=== PATIENT | female | born 1935 | race Caucasian/White ===

== ENCOUNTER 2016-10-17 20:49 | Inpatient (IN) | payer MEDICARE, BC ==
--- NOTE | 2016-10-17 20:55 | ED.PDOC ---
History of Present Illness - General Chief Complaint: General Stated Complaint: low blood pressure Time Seen by Provider: 10/17/16 20:51 Source: RN notes reviewed, Vital Signs reviewed, EMS notes reviewed Exam Limitations: clinical condition - History of Present Illness Initial Comments: Victoria Youssef 81 y/o female brought by ems after they were called up for low blood pressure on the patient.She is being treated with antibiotics for uti showing vancomycin resistant enterococcus.She was admitted for rehab after she had hip surgery left.Patient had been also sleeping a lot.Niece and brother also stated that she had been having diarrhea for 5 days and noted when they visited her had been having occasional visual hallucinations as well as talking about her bad dreams;also she was able to go to rehab last week but starting wednesday she likes to stay in bed mostly and was noted to be gradually getting worse mumbling and with just being touch screams in pain. Timing/Duration: unsure Severity: moderate Improving Factors: nothing Worsening Factors: movement Associated Symptoms: other - none Allergies/Adverse Reactions: Allergies NO KNOWN ALLERGY Allergy (Unverified 05/22/14 04:14) Home Medications: Ambulatory Orders Flagyl 05/22/14 Review of Systems - Review of Systems Hematologic/Lymphatic: States: no symptoms reported Unable to Obtain Due To: clinical condition Past Medical History (General) - Patient Medical History Hx Other PMH: Yes - parkinsons,vascular dementia w/behavioral disturbances, psychosis nos Surgical History: other - left hip - Vaccination History Hx Influenza Vaccination: No Family Medical History - Family History Mother Family History: Unknown Living Status: Physical Exam - Physical Exam General Appearance: Agitated, No apparent distress, Other - somnolent but screams when extremities are touch Ears, Nose, Throat: other - oral mucosa dry multiple tooth decay Neck: non-tender, supple, normal inspection Respiratory: chest non-tender, no respiratory distress, rales - bases Cardiovascular/Chest: normal peripheral pulses, regular rate, rhythm, no JVD, no murmur Peripheral Pulses: radial,right: 2+, radial,left: 2+ Gastrointestinal/Abdominal: normal bowel sounds, soft, no organomegaly, other - feeding tube intact Rectal Exam: normal rectal tone Back Exam: normal inspection Extremity: no pedal edema, other - healed surgical scar left hip Progress - Results/Orders Results/Orders: Vital Signs - 8 hr 10/17/16 10/17/16 10/17/16 20:57 20:58 22:16 Temperature 98.8 F Pulse Rate [ 71 73 right] Respiratory 18 18 18 Rate Blood Pressure 99/48 101/56 [right] O2 Sat by Pulse 98 97 Oximetry 10/17/16 10/18/16 23:20 00:04 Temperature 97.4 F L Pulse Rate [ 73 73 right] Respiratory 18 18 Rate Blood Pressure 101/56 140/52 [right] O2 Sat by Pulse 94 L 94 L Oximetry 10/17/16 22:20 URINE CULTURE W/COLONY COUNT Stat 10/18/16 00:07 Head [CT] Stat Laboratory Results WBC 6.8 K/mm3 (4.8-10.8) 10/17/16 21:20 RBC 3.48 M/mm3 (4.20-5.40) L 10/17/16 21:20 Hgb 10.3 gm/dL (12.0-16.0) L 10/17/16 21:20 Hct 30.5 % (36.0-47.0) L 10/17/16 21:20 MCV 87.7 fl (81.0-99.0) 10/17/16 21:20 MCH 29.5 pg (27.0-31.0) 10/17/16 21:20 MCHC 33.8 g/dL (33.0-37.0) 10/17/16 21:20 RDW 17.2 % (11.5-14.5) H 10/17/16 21:20 Plt Count 242 K/mm3 (130-400) 10/17/16 21:20 MPV 8.1 fl (7.40-10.4) 10/17/16 21:20 Absolute Neuts (auto) 5.00 K/uL (1.8-6.8) 10/17/16 21:20 Absolute Lymphs (auto) 0.90 K/uL (1.0-3.4) L 10/17/16 21:20 Absolute Monos (auto) 0.70 K/uL (0.2-0.8) 10/17/16 21:20 Absolute Eos (auto) 0.20 K/uL (0.0-0.4) 10/17/16 21:20 Absolute Basos (auto) 0.00 K/uL (0.0-0.1) 10/17/16 21:20 Neutrophils % 73.5 % (42.0-78.0) 10/17/16 21:20 Lymphocytes % 13.6 % (20.0-50.0) L 10/17/16 21:20 Monocytes % 10.1 % (2.0-9.0) H 10/17/16 21:20 Eosinophils % 2.4 % (1.0-5.0) 10/17/16 21:20 Basophils % 0.4 % (0.0-2.0) 10/17/16 21:20 Sodium 142 mmol/L (135-145) 10/17/16 21:20 Potassium 3.5 mmol/L (3.6-5.0) L 10/17/16 21:20 Chloride 112 mmol/L (101-111) H 10/17/16 21:20 Carbon Dioxide 24 mmol/L (21-31) 10/17/16 21:20 Anion Gap 9.5 (12-18) L 10/17/16 21:20 BUN 59 mg/dL (7-18) H 10/17/16 21:20 Creatinine 1.11 mg/dL (0.6-1.3) 10/17/16 21:20 BUN/Creatinine Ratio 53.2 (10-20) H 10/17/16 21:20 Random Glucose 121 mg/dL (70-105) H 10/17/16 21:20 Serum Osmolality 300.9 mOsm/L (275-295) H 10/17/16 21:20 Lactic Acid 1.6 mmol/L (0.5-2.2) 10/17/16 21:20 Calcium 8.6 mg/dL (8.4-10.2) 10/17/16 21:20 Total Bilirubin 0.2 mg/dL (0.2-1.0) 10/17/16 21:20 AST 26 IU/L (10-42) 10/17/16 21:20 ALT 27 IU/L (10-60) 10/17/16 21:20 Alkaline Phosphatase 64 IU/L (42-121) 10/17/16 21:20 Serum Total Protein 6.7 gm/dL (6.4-8.2) 10/17/16 21:20 Albumin 2.5 g/dl (3.2-5.5) L 10/17/16 21:20 Globulin 4.2 gm/dL (2.3-3.5) H 10/17/16 21:20 Albumin/Globulin Ratio 0.6 (1.1-1.9) L 10/17/16 21:20 Urine Color Yellow (Yellow) 10/17/16 22:20 Urine Appearance Cloudy (Clear) 10/17/16 22:20 Urine pH 5.5 (4.5-7.8) 10/17/16 22:20 Ur Specific [place] 1.015 (1.005-1.030) 10/17/16 22:20 Urine Protein 100 mg/dL H 10/17/16 22:20 Urine Glucose (UA) Negative mg/dL (Negative) 10/17/16 22:20 Urine Ketones Negative mg/dL (NEGATIVE) 10/17/16 22:20 Urine Blood Trace-lysed (Negative) H 10/17/16 22:20 Urine Nitrite Negative 10/17/16 22:20 Urine Bilirubin Negative (NEGATIVE) 10/17/16 22:20 Urine Urobilinogen 0.2 mg/dL (0.2-1.0) 10/17/16 22:20 Ur Leukocyte Esterase Small (Negative) H 10/17/16 22:20 Urine RBC 0 /hpf 10/17/16 22:20 Urine WBC >50 /hpf H 10/17/16 22:20 Ur Epithelial Cells 5-10 /hpf 10/17/16 22:20 Amorphous Sediment 3+ 10/17/16 22:20 Urine Bacteria Rare 10/17/16 22:20 Coarse Granular Casts 0-1 /lpf 10/17/16 22:20 Urine Mucus Small 10/17/16 22:20 Stool Occult Blood Positive 10/17/16 22:00 - EKG/XRAY/CT CT Ordered: Yes - head w/o conrast-no acute findings/radiologist Departure - Departure Clinical Impression: Altered awareness, transient, Dehydration Pneumonia of upper lobe of lung Qualifiers: Pneumonia type: due to unspecified organism Laterality: right Qualified Code(s) : J18.9 - Pneumonia, unspecified organism Time of Disposition: 01:38 - D/W Carl Echeverria ANP-Hospitalist Disposition: Admit Patient Condition: Fair Referrals: VARSHA DEWITT DO [Primary Care Provider] - 1-2 Weeks Home Medications: Ambulatory Orders Flagyl 05/22/14
[2016-10-17] MEDS ORDERED: SODIUM CHLORIDE 0.9% 500ML 500 ML IVS ONE (21:03)
--- NOTE | 2016-10-17 21:35 | RAD ---
EXAM: Chest,1 View CLINICAL INDICATION: 81-year-old female with pain. TECHNIQUE: Single view, AP portable chest was obtained. COMPARISON: None. FINDINGS: Examination findings are limited secondary to patient positioning and exaggerated rotation. Prominent cardiac mediastinal silhouette cannot be completely evaluated secondary to severe patient rotation. Tortuous atherosclerotic thoracic aorta. Cardiac size appears to be within normal limits within the limitations of the examination. Hazy opacification of the RIGHT perihilar and RIGHT upper lobe suggest consolidation. No gross pneumothoraces. LEFT basilar opacification suggesting small left-sided pleural effusion. The visualized bones reveal degenerative change and diffuse demineralization. IMPRESSION: 1. Limited examination secondary to patient rotation with RIGHT upper lobe perihilar opacification suggesting consolidation. Correlation with patient's clinical findings and short-term interval follow-up is recommended. 2. LEFT basilar opacity suggest small pleural effusion. Electronically signed by: Allyn Mccray MD 10/17/2016 9:36 PM CDT Workstation: [id number]
[2016-10-18] MEDS ORDERED: SODIUM CHLORIDE 0.9% 1000ML 1,000 ML IVS PRN (00:48)
[2016-10-18] MEDS ORDERED: PIPERACILLIN/TAZOBACTAM 3.375 GM in SODIUM CHLORIDE 0.9% 100ML 100 ML IVPB ONE (00:54)
[2016-10-18] MEDS ORDERED: levoFLOXacin 500MG IV 500 MG in PREMIX BAG 1 BAG IVPB ONE (00:55)
--- NOTE | 2016-10-18 00:56 | CT ---
PROCEDURE: Head HISTORY: ams Indication: Same as above Comparison: None Technique: CT of the head was done without intravenous contrast was done in the orthogonal planes. This exam was performed according to our departmental dose-optimization program, which includes automated exposure control, adjustment of the mA and/or KV according to the patient's size and/or use of iterative reconstruction technique. FINDINGS: There is no intracranial hemorrhage, midline shift mass effect or acute focal infarct. There is prominence of the sylvian fissures and the cortical sulci reflecting age related volume loss. There is periventricular and deep white matter low attenuation, most likely related to small vessel white matter ischemic disease. If clinical concern exists regarding an acute ischemic/vascular pathology being responsible for patient's symptomatology, an MRI of the brain is more sensitive than the current study, in ruling out such a possibility. There is good rodriguez/white matter differentiation. The ventricular system is normal. The mastoid air cells are unremarkable . The paranasal sinuses are unremarkable . There is no visualization of acute fractures involving the calvarium or the skull base. IMPRESSION: There is no acute intracranial abnormality. Electronically signed by: Den Raman MD 10/18/2016 12:55 AM CDT Workstation: [id number]
[2016-10-18] MEDS ORDERED: PIPERACILLIN/TAZOBACTAM 3.375 GM VIAL IVPB ONE ×5 (00:58→19:45)
[2016-10-18] MEDS ORDERED: SODIUM CHLORIDE 0.9% 100ML 100 ML IVPB ONE ×5 (00:58→19:45)
--- NOTE | 2016-10-18 01:45 | HP ---
CHIEF COMPLAINT: Low blood pressure and confusion. HISTORY OF PRESENT ILLNESS: Ms. Youssef is an 81 year-old resident at [facility]. She is there for rehabilitation for a left hip fracture that was repaired surgically in [place] over a month ago. The patient is also being treated with oral antibiotics for a chronic urinary tract infection secondary to vancomycin resistant Enterococcus. Apparently the patient has been somewhat confused for the past 4 to 5 days. She has not been cooperating with physical therapy and she has been noted to have some visual hallucinations. Her appetite has become very poor. In the wee hours of the night on Wednesday night and early Wednesday morning, the patient became hypotensive and unresponsive to verbal stimuli. She would wake up to physical stimulation. The ambulance was called and the patient was found to be hypotensive with a systolic blood pressure in the 80s. She was given IV fluids and transported to the Emergency Room. Resuscitation with IV fluids, oxygen and breathing treatments there stabilized the patient and she became much more alert. Workup in the E. R. reveals a right upper lobe pneumonia. The patient is now being admitted to the hospital. She was initially started on antibiotics to cover aspiration pneumonia since she has a history of an abnormal swallow study and currently is being bed through a feeding tube. There is a history that the patient has been having some sips of liquids and even eating an occasional bite of food under the guidance of the speech pathologist at the custodial, and so it is possible that she could have aspirated, although this was not witnessed. PAST MEDICAL HISTORY: 1. Alzheimer's dementia. 2. Parkinson's disease. 3. Peripheral vascular disease. 4. Chronic stage 2 venous stasis ulcer on the right heel. 5. Uterine prolapse, pessary in place. 6. Osteoporosis. 7. Recent left hip fracture requiring open reduction and internal fixation with subsequent decline in functional status. PAST SURGICAL HISTORY: 1. Umbilical hernia repair. 2. Open reduction and internal fixation left hip fracture. CURRENT MEDICATIONS: See list from custodial (We are currently trying to verify that list). ALLERGIES: NO KNOWN DRUG ALLERGIES. FAMILY HISTORY: Noncontributory. SOCIAL HISTORY: She and her are and have lived in [place] for a long time. She is currently living at [facility] for rehabilitation. She is a full code. No history of tobacco, alcohol or drug use. REVIEW OF SYSTEMS: CONSTITUTIONAL: No recent fever or chills. HEENT: No head congestion or sore throat. CARDIOVASCULAR: No chest pains. No palpitations. PULMONARY: She has a cough but she has not complained of dyspnea. GASTROINTESTINAL: No nausea or vomiting. She does have daily bowel movements. She is not constipated. GENITOURINARY: No dysuria. No hematuria. She does have incontinence. NEUROLOGIC: No headache or dizziness. Her dementia is at baseline currently, although it was significantly diminished when she got to the emergency room. HEMATOLOGIC: No bleeding tendencies or easy bruising. LYMPHATICS: No swollen lymph nodes. PHYSICAL EXAMINATION: VITAL SIGNS: Temperature 98.9, pulse 73, blood pressure originally 80/40, currently 99/56, respiratory rate 14 to 20, pulse oximetry 91 to 98% on room air. GENERAL: Currently the patient is awake and alert. She repeats that she wants some coffee. She is pleasantly demented, although appears to be a little agitated. There are no current auditory or visual hallucinations that I can detect. HEENT: Oral mucous membranes are just a little on the dry side. NECK: Supple. No adenopathy. CHEST: Clear to auscultation. CARDIOVASCULAR: Regular rate and rhythm. ABDOMEN: Soft, non-tender, nondistended. G-tube is in place. GENITOURINARY AND RECTAL: Deferred. EXTREMITIES: Very thin. She is cachectic-appearing. She has her arms and legs pulled up tight in the position. When I request her to stretch out, she can fully extend her hips, knees, ankles and her elbows. She appears to have good motor function throughout. NEUROLOGIC: No focal neurologic deficits. She has a baseline dementia that is probably not too far from the baseline at this time. LABORATORY: Blood work shows a normal white blood count at 6.8. She is a little anemic at 10.3 and 30.5. Platelets are 242. Potassium is low at 3.5, but otherwise her electrolytes look good. BUN is 59, creatinine 1.1, glucose 121, lactic acid 1.6. Liver enzymes are all normal. Urinalysis shows greater than 50 white blood cells. No red blood cells. Stool is heme positive. CT head is negative for acute changes. CT chest is significant for a right upper lobe infiltrate. ASSESSMENT: 1. Right upper lobe pneumonia. 2. Hypotension secondary to early sepsis secondary to number 1. 3. Acute delirium with visual hallucinations, secondary to number 1. 4. Poor functional status, status post open reduction and internal fixation left hip fracture 1 month ago. 5. Heme positive stool. 6. Anemia. 7. Dehydration. 8. Mild hypokalemia. 9. Alzheimer's dementia. 10. Parkinsonism. 11. Peripheral vascular disease. 12. Chronic right heel venous stasis ulcer. PLAN: The patient has already been stabilized and I really think that a couple of days of IV fluids and IV antibiotics could make a world of difference for her. Her urinary tract infection is most likely going to be the VRE that is already identified and being treated. Her current acute infection is the pneumonia and that is what we are going to focus on. At this time, she presents in a rather dehydrated state and so IV fluids are going to continue to be very important to her improvement. We will keep the patient NPO and resume her usual Jevity feeds through her PEG tube. She gets trickle feeds overnight. I am going to resume those but cut it back to a lower rate than normal. She does need some IV fluids and we will be making sure that she gets the free water that she requires via an IV route during the next 24 to 48 hours. The patient has been started empirically on IV Zosyn and Levaquin. I concur with that antibiotic choice. She is also started on subcue Lovenox for DVT prophylaxis, however I am concerned about her anemia and heme positive stool, and am therefore going to stop the Lovenox and use SCDs for DVT prophylaxis. The usual home medications will be verified and then I am going to resume those as appropriate. The patient's condition is fair. Her short term prognosis is fair but her custodial prognosis is poor. The patient does have a full code status. Her asked me to "do whatever it takes to get her well" which to me signifies that he does not fully grasp the severity of his 's chronic ongoing medical problems that have really been exacerbated by this recent hip fracture. I do not think that she will be able to survive her current bouts of infections because her functional status is obviously very poor. #[id number] [facility]
[2016-10-18] MEDS ORDERED: levoFLOXacin 500MG IV 100 ML IVPB ONE ×2 (03:38→19:47)
[2016-10-18] MEDS: KCL 20MEQ/0.45% NS 1,000 ML IVS PRN ×2 (04:58→17:02)
[2016-10-18] MEDS ORDERED: ACETAMINOPHEN 325 MG TAB PO PRN (06:34)
[2016-10-18] MEDS ORDERED: ALBUTEROL SULFATE 2.5 MG/3 ML VIAL NEB PRN (06:34)
--- NOTE | 2016-10-18 07:01 | PCM.CORE ---
Physician DVT/VTE - Nurse DVT Assessment & Total Each Risk Factor Represents 5 Points: Hip,Pelvis,leg Fx <1month Each Risk Factor Represents 3 Points: Age over 75 years, Medical PT with Hx of OR, CHF, Severe infection/sepsis Each Risk Factor is 1 Point: Serious Lung disease (pnemonia <1month, COPD, emphysema,etc) DVT Assessment Score: 12 - 5 or more Very High Risk Treatments: Early Ambulation *, Sequential Compression Device Pharmacological: Enoxaparin 40mg SQ Daily
[2016-10-18] MEDS ORDERED: ENOXAPARIN SODIUM 30 MG/0.3 ML SYG SUBCU ONE (07:40)
[2016-10-18] MEDS: QUEtiapine FUMARATE 25 MG TAB GT SCH ×2 (07:46→20:32)
[2016-10-18] MEDS: POTASSIUM CHLORIDE 20 MEQ TAB GT SCH ×2 (07:46→20:32)
[2016-10-18] MEDS: PIPERACILLIN/TAZOBACTAM 3.375 GM in SODIUM CHLORIDE 0.9% 100ML 100 ML IVPB SCH ×3 (07:48→18:23)
[2016-10-18] MEDS: IV SET AND CAP CHANGE INJ INJ SCH (08:09)
[2016-10-18] MEDS: PRAMIPEXOLE 0.25 MG TAB GT SCH ×2 (08:09→20:32)
[2016-10-18] MEDS: IPRATROPIUM/ALBUTEROL 3 ML VIAL NEB SCH ×4 (08:15→20:16)
[2016-10-18] MEDS ORDERED: ACETAMINOPHEN 325 MG TAB GT PRN (09:00)
[2016-10-18] MEDS ORDERED: ENOXAPARIN SODIUM 30 MG/0.3 ML SYG SUBCU SCH (09:00)
[2016-10-18] MEDS ORDERED: FERROUS FUMARATE GT SCH (09:00)
[2016-10-18] MEDS ORDERED: [UNRECOGNIZED DRUG - OTHER] GT SCH (09:00)
[2016-10-18] MEDS ORDERED: SODIUM CHLORIDE 0.9% 500ML 500 ML IVS ONE (10:37)
[2016-10-18] MEDS ORDERED: SODIUM CHLORIDE 0.9% 500ML 500 ML ONE (10:39)
[2016-10-18] MEDS: NON-FORMULARY MEDICATION 1 EA MIS GT SCH ×3 (20:30→20:33)
[2016-10-19] MEDS: levoFLOXacin 500MG IV 500 MG in PREMIX BAG 1 BAG IVPB SCH ×2 (00:01→23:40)
[2016-10-19] MEDS: PIPERACILLIN/TAZOBACTAM 3.375 GM in SODIUM CHLORIDE 0.9% 100ML 100 ML IVPB SCH ×4 (01:33→18:40)
[2016-10-19] MEDS: NON-FORMULARY MEDICATION 1 EA MIS GT SCH ×7 (02:00→20:28)
[2016-10-19] MEDS ORDERED: SODIUM CHLORIDE 0.9% 100ML 100 ML IVPB ONE ×3 (02:40→17:44)
[2016-10-19] MEDS ORDERED: PIPERACILLIN/TAZOBACTAM 3.375 GM VIAL IVPB ONE ×3 (02:40→17:44)
[2016-10-19] MEDS ORDERED: PANTOPRAZOLE SODIUM IV 40 MG VIAL ONE (02:40)
[2016-10-19] MEDS: KCL 20MEQ/0.45% NS 1,000 ML IVS PRN (04:53)
[2016-10-19] MEDS: SODIUM CHLORIDE 0.9% (FLUSH) 10 ML SYG IV PRN ×3 (06:06→23:40)
[2016-10-19] MEDS: PANTOPRAZOLE SODIUM IV 40 MG VIAL IV SCH (06:06)
--- NOTE | 2016-10-19 06:20 | RAD ---
EXAM DESCRIPTION: Chest,1 View CLINICAL HISTORY: pneumonia COMPARISON: October 17, 2016 FINDINGS: Patient is rotated. Abnormal right perihilar opacity worrisome for an infectious process versus asymmetric edema. Recommend follow-up. Blunted left costophrenic angle is unchanged and could be secondary to pleural fluid. Increased opacity in the left lower lung may represent atelectasis. There is no pneumothorax. IMPRESSION: Abnormal right perihilar opacity worrisome for asymmetric pulmonary edema versus an infectious process. Recommend follow-up. Blunted left costophrenic angle and increased opacity in the left lower lung could represent a combination of pleural fluid and atelectasis. Electronically signed by: Hal Oliver MD 10/19/2016 6:21 AM CDT
[2016-10-19] MEDS: PRAMIPEXOLE 0.25 MG TAB GT SCH ×3 (07:47→20:30)
[2016-10-19] MEDS: QUEtiapine FUMARATE 25 MG TAB GT SCH ×3 (07:47→20:28)
[2016-10-19] MEDS: POTASSIUM CHLORIDE 20 MEQ TAB GT SCH ×3 (07:47→20:25)
[2016-10-19] MEDS: IPRATROPIUM/ALBUTEROL 3 ML VIAL NEB SCH ×4 (08:35→20:43)
[2016-10-19] MEDS: SODIUM CHLORIDE 0.9% (FLUSH) 10 ML SYG IV SCH ×2 (08:56→19:40)
--- NOTE | 2016-10-19 13:34 | PN ---
DATE: 10-19-16 SUBJECTIVE: Ms. Youssef seems to be a little better according to her . It is difficult for me to tell as her mental status remains pretty confused but at baseline. According to the nurses, she was not able to get out of the bed to the chair at all yesterday. She remains confused but cooperative. She rested well last night. OBJECTIVE: VITAL SIGNS: T-max 99.8, pulse is in the 70s, blood pressure 112/66, pulse oximetry 96% on room air. GENERAL: She is in no distress. She is resting but easily awakened and she interacts well with the examiner. She is confused and keeps telling me to "hang around and eat lunch with my boys when they get here. " CHEST: She has rhonchi in the lung bases, no expiratory wheezes, no rales. CARDIOVASCULAR: regular rate and rhythm. ABDOMEN: Benign. EXTREMITIES: Thin , no edema. LABORATORY: Chest x-ray shows right upper lobe infiltrate. White count is normal at 5.6, hematocrit is a little lower than yesterday at 28.3. Her chloride has risen to 116 while on one-half normal saline. Potassium is now normal at 4.5, sodium is good at 145. BUN has decreased from 59 to 38, creatinine is stable at 1.19. Blood and urine cultures are negative at 24 hours. ASSESSMENT: 1. Right upper lobe pneumonia, consider aspiration pneumonia. 2. Hypotension secondary to an early sepsis syndrome and dehydration, resolved. 3. Acute delirium lying on top of a chronic baseline Alzheimer's dementia that is rather advanced, now at baseline. 4. Free water deficit with elevated chlorine despite correction of her dehydration with one-half normal saline. 5. Anemia with heme positive stool. 6. Advanced Alzheimer's dementia. 7. Parkinsonism. 8. Peripheral vascular disease. 9. Chronic right heel venous stasis ulcer that has not healed after a couple of months of treatment at the hospital, the care home and the rehab center. PLAN: Ms. Youssef is really in poor shape. She has numerous comorbidities and her dementia and parkinsonism probably are reaching an endstage course of disease. I have had a long talk with her today about her status and asked him about end-of-life care and code status and he wants her to be DNR. That order is written today. We are going to continue to treat her current pneumonia with IV antibiotics. I would like to try to get her out of the bed to a chair today and see if it is even feasible. If the patient remains too weak to get out of bed to chair, then I really think hospice needs to be considered once the patient is discharged from the hospital because her Alzheimer's, Parkinson's and recurrent infections are highly to only worsen as the next weeks and months go by. I would be very surprised if she is still living 6 months from now. There is also the high possibility the patient has an underlying colon cancer with her history of iron-deficiency anemia with heme positive stools. #[id number] [facility]
[2016-10-19] MEDS ORDERED: levoFLOXacin 500MG IV 100 ML IVPB ONE (19:52)
[2016-10-20] MEDS ORDERED: SODIUM CHLORIDE 0.9% 100ML 100 ML IVPB ONE ×2 (01:16→05:50)
[2016-10-20] MEDS ORDERED: PIPERACILLIN/TAZOBACTAM 3.375 GM VIAL IVPB ONE ×2 (01:16→05:50)
[2016-10-20] MEDS: SODIUM CHLORIDE 0.9% (FLUSH) 10 ML SYG IV PRN ×3 (01:30→06:43)
[2016-10-20] MEDS: NON-FORMULARY MEDICATION 1 EA MIS GT SCH ×8 (01:30→20:05)
[2016-10-20] MEDS: PIPERACILLIN/TAZOBACTAM 3.375 GM in SODIUM CHLORIDE 0.9% 100ML 100 ML IVPB SCH ×2 (01:30→06:43)
[2016-10-20] MEDS: PANTOPRAZOLE SODIUM IV 40 MG VIAL IV SCH (06:14)
--- NOTE | 2016-10-20 07:18 | RAD ---
Procedure: XR CHEST 1 VIEW Exam Date: 10/20/2016 Ordering Provider: KALEN ALMANZAR MD Clinical Indication: rul pneumonia Comparison: 10/19/2016 Findings: Cardiomediastinal silhouette is stable. Focal lung consolidation: Right perihilar and upper lobe opacities are not significantly changed from prior. Left basilar atelectasis and/or infiltrate. Pleural effusion: Small left pleural effusion. Pneumothorax: None Acute bony or soft tissue abnormality: None Impression: 1. Right perihilar and upper lobe opacities are not significantly changed from prior. 2. Left basilar atelectasis and/or infiltrate. 3. Small left pleural effusion. Electronically signed by: Rohan Agudelo MD 10/20/2016 7:19 AM CDT
[2016-10-20] MEDS: IPRATROPIUM/ALBUTEROL 3 ML VIAL NEB SCH ×4 (07:51→20:24)
[2016-10-20] MEDS: POTASSIUM CHLORIDE 20 MEQ TAB GT SCH ×2 (09:00→20:08)
[2016-10-20] MEDS: QUEtiapine FUMARATE 25 MG TAB GT SCH ×2 (09:00→20:08)
[2016-10-20] MEDS: PRAMIPEXOLE 0.25 MG TAB GT SCH ×2 (09:01→20:08)
[2016-10-20] MEDS: SODIUM CHLORIDE 0.9% (FLUSH) 10 ML SYG IV SCH ×2 (09:06→20:09)
--- NOTE | 2016-10-20 10:22 | PN ---
SUPERVISING PHYSICIAN: Nelson Patel MD DATE: 10/20/16 SUBJECTIVE: The patient is lying in her hospital bed. Her is at the bedside. She has no complaints overnight. She denies any shortness of breath, nausea, vomiting, chest pain. Her thinks she has improved overnight. OBJECTIVE: VITAL SIGNS: Afebrile. Heart rate 83. Blood pressure 123/73. Respiratory rate 20. O2 saturation 95%. LUNGS: Essentially clear to auscultation bilaterally in the apices, but some rhonchi in the bases. CARDIAC: Regular rate and rhythm. ABDOMEN: Soft, nontender, nondistended. Bowel sounds are positive. NEUROLOGIC: She is awake and alert. She is difficult to understand, but does answer some simple yes/no questions appropriately. LABORATORY: Chest x-ray per radiologic interpretation shows right perihilar and upper lobe opacities that are not significantly changed from prior and left basilar atelectasis/infiltrate and a small left pleural effusion. Labs show hemoglobin and hematocrit stable at 9.6 and 29.1. Sodium stable at 145, chloride 115, BUN 30, creatinine 2.07. All preliminary cultures show no growth after 48 hours. Urine culture is negative. All other labs and films have been reviewed via the EMR. ASSESSMENT: 1. Right upper lobe pneumonia, most likely aspiration pneumonia. 2. Hypotension, may be related to an early sepsis syndrome, and dehydration, resolved. 3. Acute delirium, may be due to an infectious process with a baseline Alzheimer's dementia that is now at baseline. 4. Free water deficit with elevated chlorine despite correction of her dehydration with one-half normal saline, now on 1 liter of free water daily plus tube feeding. 5. Anemia with heme positive stool. 6. Alzheimer's dementia. 7. Parkinsonism. 8. Peripheral vascular disease. 9. Chronic right heel venous stasis ulcer that has not healed after a couple of months of treatment at the hospital, the detention and the rehab center. PLAN: We will continue her present supportive care. Dr. Tai and the had a long discussion yesterday and she is now DNR. We will continue her antibiotics as ordered as well as getting her up and moving about. I will repeat her labs tomorrow. She should be able to return to the detention in the next one to two days. At this point, we will continue to monitor closely and followup as needed. Dr. Patel is the collaborating physician and available for consultation. #[id number] [facility]
[2016-10-20] MEDS ORDERED: SODIUM CHLORIDE 0.9% 50ML 50 ML ONE ×2 (12:07→16:32)
[2016-10-20] MEDS ORDERED: PIPERACILLIN/TAZOBACTAM 2.25 GM VIAL IVPB ONE ×2 (12:07→16:32)
[2016-10-20] MEDS: PIPERACILLIN/TAZOBACTAM 2.25 GM in SODIUM CHLORIDE 0.9% 50ML 50 ML IVPB SCH ×2 (13:05→18:30)
[2016-10-21] MEDS: levoFLOXacin 250MG IV 250 MG in PREMIX BAG 1 BAG IVPB SCH (00:26)
[2016-10-21] MEDS ORDERED: levoFLOXacin 250MG IV 50 ML IVPB ONE (00:26)
[2016-10-21] MEDS ORDERED: PIPERACILLIN/TAZOBACTAM 2.25 GM VIAL IVPB ONE ×4 (01:21→14:54)
[2016-10-21] MEDS ORDERED: SODIUM CHLORIDE 0.9% 50ML 50 ML ONE ×4 (01:21→14:55)
[2016-10-21] MEDS: PIPERACILLIN/TAZOBACTAM 2.25 GM in SODIUM CHLORIDE 0.9% 50ML 50 ML IVPB SCH ×4 (01:26→18:39)
[2016-10-21] MEDS: NON-FORMULARY MEDICATION 1 EA MIS GT SCH ×8 (01:27→20:40)
[2016-10-21] MEDS: traMADol HCL 50 MG TAB GT PRN ×2 (01:50→08:04)
[2016-10-21] MEDS: PANTOPRAZOLE SODIUM IV 40 MG VIAL IV SCH (05:47)
[2016-10-21] MEDS ORDERED: traMADol HCL 50 MG TAB GT PRN (08:01)
[2016-10-21] MEDS: QUEtiapine FUMARATE 25 MG TAB GT SCH ×2 (08:04→20:45)
[2016-10-21] MEDS: PRAMIPEXOLE 0.25 MG TAB GT SCH ×2 (08:04→20:44)
[2016-10-21] MEDS: IPRATROPIUM/ALBUTEROL 3 ML VIAL NEB SCH ×4 (08:15→20:15)
[2016-10-21] MEDS: IV SET AND CAP CHANGE INJ INJ SCH (09:18)
[2016-10-21] MEDS: POTASSIUM CHLORIDE 20 MEQ TAB GT SCH ×2 (09:18→20:45)
[2016-10-21] MEDS: SODIUM CHLORIDE 0.9% (FLUSH) 10 ML SYG IV SCH ×2 (09:19→20:45)
[2016-10-22] MEDS ORDERED: levoFLOXacin 250MG IV 50 ML IVPB ONE (00:08)
[2016-10-22] MEDS: levoFLOXacin 250MG IV 250 MG in PREMIX BAG 1 BAG IVPB SCH (00:15)
[2016-10-22] MEDS ORDERED: SODIUM CHLORIDE 0.9% 50ML 50 ML ONE ×2 (00:48→05:35)
[2016-10-22] MEDS ORDERED: PIPERACILLIN/TAZOBACTAM 2.25 GM VIAL IVPB ONE ×2 (00:48→05:35)
[2016-10-22] MEDS: PIPERACILLIN/TAZOBACTAM 2.25 GM in SODIUM CHLORIDE 0.9% 50ML 50 ML IVPB SCH ×2 (01:11→05:51)
[2016-10-22] MEDS: NON-FORMULARY MEDICATION 1 EA MIS GT SCH ×4 (02:00→15:02)
[2016-10-22] MEDS: PANTOPRAZOLE SODIUM IV 40 MG VIAL IV SCH (05:50)
[2016-10-22] MEDS: SODIUM CHLORIDE 0.9% (FLUSH) 10 ML SYG IV PRN (05:55)
--- NOTE | 2016-10-22 07:22 | RAD ---
Procedure: XR CHEST 1 VIEW Exam Date: 10/22/2016 Ordering Provider: TOPHER GOLDBERG Clinical Indication: pna Comparison: 10/20/2016 Findings: Cardiomediastinal silhouette is stable. Focal lung consolidation: Right perihilar and upper lobe opacities are not significantly changed from prior. Left basilar atelectasis and/or infiltrate. Pleural effusion: No large pleural effusions. Pneumothorax: None Acute bony or soft tissue abnormality: None Impression: 1. Right perihilar and upper lobe opacities are not significantly changed from prior. 2. Left basilar atelectasis and/or infiltrate. 3. No other significant interval change. Electronically signed by: Rohan Agudelo MD 10/22/2016 7:22 AM CDT
--- NOTE | 2016-10-22 07:49 | PN ---
SUPERVISING PHYSICIAN: Nelson Patel MD DATE: 10/21/16 SUBJECTIVE: The patient is sitting up in the chair in her room. She has no complaints, although it is very difficult to understand the patient and it was reported by the nurses that she slept well through the night. OBJECTIVE: VITAL SIGNS: T-max of 24 hours is 99. Pulse rate 78. Blood pressure 120/69. Respiratory rate 20. O2 saturation 93%. LUNGS: Essentially clear to auscultation bilaterally. CARDIAC: Regular rate and rhythm. ABDOMEN: Soft, nontender, nondistended. Bowel sounds are positive. NEUROLOGIC: She is awake and alert. LABORATORY: WBC stable at 6.5. Hemoglobin is stable at 9.8 and hematocrit at 29.6. Potassium is somewhat high at 5.2. BUN 25, sputum culture shows gram positive cocci as well as gram negative rods. Preliminary blood cultures after 3 days show no growth. All other labs and films have been reviewed via the EMR. ASSESSMENT: 1. Right upper lobe pneumonia, most likely aspiration pneumonia. 2. Hypotension, may be related to an early sepsis syndrome, and dehydration, resolved. 3. Hyperkalemia. 4. Acute delirium, may be due to an infectious process with a baseline Alzheimer's dementia that is now at baseline. 5. Free water deficit with elevated chlorine despite correction of her dehydration with one-half normal saline, now on 1 liter of free water daily plus tube feeding. 6. Anemia with heme positive stool. 7. Alzheimer's dementia. 8. Parkinsonism. 9. Peripheral vascular disease. 10. Chronic right heel venous stasis ulcer that has not healed after a couple of months of treatment at the hospital, the residential and the rehab center. PLAN: We will continue her present supportive care. I have ordered lab for in the morning, also ordered chest x-ray. Will watch her sputum cultures for sensitivities as they become available. Hopefully, she will improve enough to go back to [facility] tomorrow. She may have to go home on some IV antibiotics but we will wait for her culture and sensitivities to become available. Otherwise, we will continue to monitor patient closely and followup as needed. Dr. Patel is the collaborating physician and available for consultation. #[id number] [facility]
[2016-10-22] MEDS: IPRATROPIUM/ALBUTEROL 3 ML VIAL NEB SCH ×3 (08:03→15:57)
[2016-10-22] MEDS: POTASSIUM CHLORIDE 20 MEQ TAB GT SCH (08:35)
[2016-10-22] MEDS ORDERED: SOD POLYSTYRENE SULFONATE 15 GM/60 ML BTTL PO ONE (08:38)
[2016-10-22] MEDS ORDERED: SULFA/TRIMETH SUSP 200/40 60 ML BTTL PO SCH (09:00)
[2016-10-22] MEDS ORDERED: SOD POLYSTYRENE SULFONATE 15 GM/60 ML BTTL ONE (09:49)
[2016-10-22] MEDS: PRAMIPEXOLE 0.25 MG TAB GT SCH (09:51)
[2016-10-22] MEDS: QUEtiapine FUMARATE 25 MG TAB GT SCH (09:56)
[2016-10-22] MEDS: SODIUM CHLORIDE 0.9% (FLUSH) 10 ML SYG IV SCH (09:57)
[2016-10-22 15:39] VITALS: BP 97/64; TEMP 97.8
[2016-10-22 16:00] VITALS: O2SAT 98
--- NOTE | 2016-11-05 16:04 | DS ---
SUPERVISING PHYSICIAN: Nelson Patel M.D. DISCHARGE DIAGNOSIS: 1. Right upper lobe pneumonia most likely aspiration pneumonia. 2. Hypotension that may have been related to early sepsis syndrome and dehydration that has now resolved. 3. Hyperkalemia, now resolved. 4. Acute delirium may have been due to an infectious process but she does have a baseline Alzheimer's dementia that is presently at baseline. 5. Free water deficit that was corrected. 6. Anemia with a heme positive stool. 7. Alzheimer's dementia. 8. Parkinsonism. 9. Peripheral vascular disease. 10. Chronic right heel venous stasis ulcer that has not healed after a couple of months of treatment in the hospital. [facility]. HISTORY OF PRESENT ILLNESS: This is an 81 year-old female patient who is a resident of [facility]. She was there for rehabilitation for left hip fracture that was repaired in [place] over a month ago. 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 The patient has been confused for several days prior to her admission to the hospital. She even had some visual hallucinations. She was brought in to the hospital on the evening prior to her admission due to hypotension and unresponsiveness. She did wake up to physical stimulation. Her systolic blood pressure was in the 80s. She was given IV fluids and transported to the Emergency Room. She was given IV fluids, oxygen and breathing treatments and stabilized, and became much more alert. Her workup in the [facility] revealed that she had a right upper lobe pneumonia that could be due to aspiration pneumonia as she has had an abnormal swallow study in the past and currently being fed through a feeding tube. There was question that the patient may receive some sips of liquids and even occasionally eating at the [facility], and that she could have possibly aspirated. She was admitted to the hospital. HOSPITAL COURSE: She was treated with IV antibiotics of Levaquin and Zosyn. She was also somewhat dehydrated and given IV fluids. She was also given some free water as it was unclear as to whether she was given free water with her tube feedings in the [facility]. Her sputum culture showed Citrobacter freundii and Staphylococcus aureus which were sensitive to both Zosyn and Levaquin. Her mental status improved greatly with the initiation of antibiotics and free water. Her electrolytes were corrected. Dr. Tai talked to her and her at length and they decided at this point the patient should be a DNR and there was some question as to whether she would continue on hospice care. Her H&H was stable at discharge. Chloride 107, potassium 5. At this point, she can be discharged to the [facility]. DISCHARGE PLAN: The patient is to be discharged back to [facility]. She will continue as a DNR but at this point she will wait to finish her rehab before she goes on to [facility]. She will be discharged to [facility] and to continue with her physical therapy and rehab. She will be discharged in fair condition. She is to resume her previous diet as well as her previous medications. She is to see Dr. Muniz within the next 2 weeks. She will be discharged on Bactrim DS which is sensitive to both her urinary tract infection as well as her sputum. She is also to continue on a least 1 liter of free water daily via her G tube. It will be helpful to consult with their dietary at that time. She is to continue her Jevity as previously ordered. DISCHARGE MEDICATIONS: 1. Xopenex. 2. Potassium chloride. 3. Acetaminophen. 4. Tramadol. 5. Seroquel. 6. Ranitidine. 7. Mirapex. 8. Ferocon. 9. Loperamide. 10. Bactrim DS. Dr. Patel is the collaborating physician and available for consultation. #[id number] [facility]
== END 2016-10-22 16:55 | DRG 871 ==
LOC: ER 20:49 → MS 10-18 01:44 → OBSVTOIN 10-18 01:44
PROVIDERS: ADMIT Family Medicine; ATTEND Nurse Practitioner Acute Care
DX: A41.9 Sepsis, unspecified organism (principal); J69.0 Pneumonitis due to inhalation of food and vomit; N39.0 Urinary tract infection, site not specified; F05 Delirium due to known physiological condition; R64 Cachexia; L97.419 Non-pressure chronic ulcer of right heel and midfoot with unspecified severity; E87.5 Hyperkalemia; E86.0 Dehydration; E87.6 Hypokalemia; E87.8 Other disorders of electrolyte and fluid balance, not elsewhere classified; B95.2 Enterococcus as the cause of diseases classified elsewhere; Z16.21 Resistance to vancomycin; G20 Parkinson's disease; G30.9 Alzheimer's disease, unspecified; F02.80 Dementia in other diseases classified elsewhere, unspecified severity, without behavioral disturbance, psychotic disturbance, mood disturbance, and anxiety; R19.5 Other fecal abnormalities; D64.9 Anemia, unspecified; I73.9 Peripheral vascular disease, unspecified; I87.2 Venous insufficiency (chronic) (peripheral); N81.4 Uterovaginal prolapse, unspecified; M81.0 Age-related osteoporosis without current pathological fracture; S72.002D Fracture of unspecified part of neck of left femur, subsequent encounter for closed fracture with routine healing; Z66 Do not resuscitate

== ENCOUNTER 2017-01-02 10:07 | Inpatient (IN) | payer MEDICARE ==
[2017-01-02] MEDS ORDERED: ONDANSETRON ODT 8 MG TAB SL ONE (10:28)
[2017-01-02] MEDS ORDERED: SODIUM CHLORIDE 0.9% 1000ML 500 ML IVS ONE (10:28)
--- NOTE | 2017-01-02 11:28 | RAD ---
PROCEDURE: Abdomen Series Clinical History: nvd ams Indication: Same as above Comparison: Chest x-ray done on 10/22/2016 Technique: Two views of the abdomen and pelvis were done. In addition frontal view of the chest was done Findings: There is presence of large infiltrates in the left lung in a perihilar distribution. There is no pleural effusion or pneumothorax. The cardiomediastinal silhouette is unremarkable Normal caliber gas distended loops of small and large bowel are seen. There is fecal impaction in the rectosigmoid colon. There is no free air in the abdomen or the pelvis. Impression: There is presence of large infiltrates in the left lung in a perihilar distribution. Fecal impaction in the rectosigmoid colon Electronically signed by: Den Raman MD 01/02/2017 11:27 AM CDT Workstation: [id number]
[2017-01-02] MEDS ORDERED: SODIUM CHLORIDE 0.9% 1000ML 1,000 ML IVS ONE (11:47)
[2017-01-02] MEDS ORDERED: cefTRIAXone SODIUM 1 GM in SODIUM CHL 0.9% 50ML MIN-BAG+ 50 ML IVPB ONE (11:47)
[2017-01-02] MEDS ORDERED: AZITHROMYCIN IV 500 MG in SODIUM CHLORIDE 0.9% 250ML 250 ML IVPB ONE (11:47)
[2017-01-02] MEDS ORDERED: methylPREDNISolone SODIUM SUC 125 MG/2 ML VIAL IV ONE (11:49)
[2017-01-02] MEDS ORDERED: cefTRIAXone SODIUM 1 GM VIAL ONE (12:01)
[2017-01-02] MEDS ORDERED: SODIUM CHL 0.9% 50ML MIN-BAG+ 50 ML IVPB ONE (12:01)
--- NOTE | 2017-01-02 12:38 | ED.PDOC ---
History of Present Illness - General Chief Complaint: GI Problem Stated Complaint: vomiting,diarrhea,AMS Time Seen by Provider: 01/02/17 10:13 Source: patient, EMS notes reviewed, family Exam Limitations: clinical condition - History of Present Illness Initial Comments: The patient is an 81-year-old female presenting from the residential by EMS secondary to at least 24 hours of nausea and vomiting and diarrhea. is present currently. He reports that she is more lethargic than normal. She seems a little more confused than normal. She has not been having any fevers. She does have a long-standing Bower catheter in due to a history of a VRE urinary tract infection and a question of a vaginal colonic fistula from previous pessary use. The patient has Parkinson's and significant dementia. She has had significant deterioration since a hip surgery several months ago. reports that her blood pressures normally run low normal. for most of the exam the patient keeps her eyes closed. She does answer questions that are asked of her. For the most part her answers make sense but every now and then one of them does not. She does not appear to be in any distress. She is not reporting any pain. She does not feel short of breath. She doesn't recall the events of the last few days very well. The patient is largely bedbound at this point. Timing/Duration: 24 hours Severity: moderate Improving Factors: nothing Worsening Factors: nothing Associated Symptoms: malaise, nausea/vomiting, weakness Allergies/Adverse Reactions: Allergies NO KNOWN ALLERGY Allergy (Unverified 05/22/14 04:14) Home Medications: Ambulatory Orders Acetaminophen [Tylenol] 650 mg GT PRN PRN 10/18/16 Ferrous Fumarate W/ B12-Vit C- [Ferocon] 1 cap GT BID 10/18/16 Levalbuterol HCl 1 dose INH Q6HR PRN 10/18/16 Loperamide HCl 2 mg GT PRN PRN 10/18/16 Pramipexole Dihydrochloride [Mirapex] 1 mg GT BID 10/18/16 Quetiapine Fumarate [Seroquel] 25 mg GT BID 10/18/16 Ranitidine HCl 150 mg GT BID 10/18/16 Tramadol HCl 50 mg GT PRN PRN 10/18/16 Review of Systems - Review of Systems Review of Systems: 01/02/17 12:38 review of systems is obtained from both the patient nd her family member Constitutional: States: malaise, weakness EENTM: States: no symptoms reported Respiratory: States: no symptoms reported Cardiology: States: no symptoms reported Gastrointestinal/Abdominal: States: diarrhea, nausea, vomiting Genitourinary: States: pain - the patient does have some chronic discomfort related to herchronic uterine prolapse issues. Musculoskeletal: States: no symptoms reported Skin: States: no symptoms reported Neurological: States: other - more lethargy than normal. Chronic changes otherwise. Endocrine: States: no symptoms reported All other Systems: No Change from Baseline Past Medical History (General) - Patient Medical History Hx Dementia: Yes Hx Asthma: No Hx Cardiac Disorders: No Hx Congestive Heart Failure: No Hx Diabetes: No - Vaccination History Hx Tetanus, Diphtheria Vaccination: Yes Hx Influenza Vaccination: No - Social History Hx Alcohol Use: No Hx Depression: No - Activities of Daily Living Retirement/Assisted Living (if applicable):: [facility] Family Medical History - Family History Mother Family History: Unknown Living Status: Physical Exam - Physical Exam General Appearance: Other - the patient is drowsy. She does have significant wasting. She does have some confusion. I'm unsure how far this is from her baseline. Eye Exam: bilateral normal - significant bitemporal wasting. Ears, Nose, Throat: hearing grossly normal, other - oropharynx is fairly dry. Neck: non-tender, full range of motion, supple Respiratory: chest non-tender, no respiratory distress, no accessory muscle use , other - the patient does have some fine rales to the left side Cardiovascular/Chest: normal peripheral pulses, no edema, tachycardia Peripheral Pulses: radial,right: 2+, radial,left: 2+, dorsalis pedis,right: 2+, dorsalis pedis,left: 2+ Gastrointestinal/Abdominal: non tender - G-tube is in place., soft Rectal Exam: deferred Back Exam: other - the patient is very thin and does have some significant erythema over her bony prominences. Extremity: normal range of motion - he does have a few mild abrasions., non- tender, no pedal edema, other - capillary refill isapproximately 2 seconds. Neurologic: matrix repairer II-XII nml as tested, other - the patient recognizes her family member. She knows she is in the hospital. Sensation appears to be grossly preserved and she does actually move all 4 extremities. Skin Exam: normal color - ith the exceptions as stated above, pallor Comments: Vital Signs - 24 hr 01/02/17 01/02/17 01/02/17 10:14 11:25 12:09 Temperature 96.3 F L Pulse Rate [ 114 H 106 H 105 H Right Brachial] Respiratory 20 20 24 Rate Blood Pressure 94/58 87/57 86/54 [Right Arm] O2 Sat by Pulse 95 91 L 98 Oximetry Progress - Progress Progress: 01/02/17 12:43 the patient is an 81-year-old female with advanced Parkinson's and dementia. The patient is presenting with what appears to be early sepsis related to a left-sided pneumonia. The patient apparently does have borderline low blood pressures anyway. She has received 1.5 L of IV fluids. She has received a dose of Solu-Medrol. She has received the blood culture. She needs a second as well as a sputum culture. She is receiving a dose of Rocephin and azithromycin. Clinically she does not appear to be in a lot of distress at the moment however she does have a very high mortality given her background medical issues and the current issues bringing her here today. She appears to have some mild acute renal failure related to dehydration probably. There is is an elevation of liver function test which is also likely related. There is the possibility of a vaginal colonic fistula. The patient does however have a Bower catheter in place. If this is indeed the case there is little to be done for the patient for it at this time. Admit for treatment of the pneumonia and sepsis. - Results/Orders Results/Orders: Laboratory Tests 01/02/17 01/02/17 01/02/17 10:27 10:38 10:55 WBC RBC Hgb Hct MCV MCH MCHC RDW Plt Count MPV Absolute Neuts (auto) Absolute Lymphs (auto) Absolute Monos (auto) Absolute Eos (auto) Absolute Basos (auto) Neutrophils % Lymphocytes % Monocytes % Eosinophils % Basophils % PT 11.3 INR 1.000 PTT (SP) 29.9 Sodium 139 Potassium 4.3 Chloride 101 Carbon Dioxide 25 Anion Gap 17.3 BUN 54 H Creatinine 1.26 BUN/Creatinine Ratio 42.9 H Random Glucose 179 H Serum Osmolality 296.8 H Lactic Acid Calcium 8.8 Magnesium 1.9 Total Bilirubin 0.7 AST 170 H ALT 111 H Alkaline Phosphatase 112 Creatine Kinase 1242 H* CK-MB (CK-2) 23.1 H* CK-MB (CK-2) % 1.86 Troponin I < 0.02 B-Natriuretic Peptide 125.0 H Serum Total Protein 7.1 Albumin 2.9 L Globulin 4.2 H Albumin/Globulin Ratio 0.7 L Amylase 64 Lipase 19 L TSH 2.16 Urine Color Yellow Urine Appearance Clear Urine pH 5.0 Ur Specific [place] 1.015 Urine Protein 30 Urine Glucose (UA) Negative Urine Ketones Trace Urine Blood Large H Urine Nitrite Positive H Urine Bilirubin Negative Urine Urobilinogen 0.2 Ur Leukocyte Esterase Large H Urine RBC 20-30 H Urine WBC 10-20 H Ur Epithelial Cells 0 Urine Bacteria 2+ H 01/02/17 01/02/17 10:55 10:55 WBC 6.3 RBC 4.29 Hgb 13.1 Hct 39.0 MCV 91.0 MCH 30.5 MCHC 33.5 RDW 17.5 H Plt Count 167 MPV 8.6 Absolute Neuts (auto) 5.70 Absolute Lymphs (auto) 0.40 L Absolute Monos (auto) 0.20 Absolute Eos (auto) 0.00 Absolute Basos (auto) 0.00 Neutrophils % 90.6 H Lymphocytes % 5.8 L Monocytes % 3.0 Eosinophils % 0.3 L Basophils % 0.3 PT INR PTT (SP) Sodium Potassium Chloride Carbon Dioxide Anion Gap BUN Creatinine BUN/Creatinine Ratio Random Glucose Serum Osmolality Lactic Acid 2.0 Calcium Magnesium Total Bilirubin AST ALT Alkaline Phosphatase Creatine Kinase CK-MB (CK-2) CK-MB (CK-2) % Troponin I B-Natriuretic Peptide Serum Total Protein Albumin Globulin Albumin/Globulin Ratio Amylase Lipase TSH Urine Color Urine Appearance Urine pH Ur Specific [place] Urine Protein Urine Glucose (UA) Urine Ketones Urine Blood Urine Nitrite Urine Bilirubin Urine Urobilinogen Ur Leukocyte Esterase Urine RBC Urine WBC Ur Epithelial Cells Urine Bacteria chest x-ray shows significant left-sided infiltrates. Abdominal x-ray shows some constipation. EKG shows artifact due to baseline tremor. There does appear to be a right bundle branch block. There is possibly a left anterior fascicular block however it is difficult to tell for sure. No definitive acute ST segment changes in light of those background issues. I do not have a previous EKG to compare to. She does have sinus tachycardia. Departure - Departure Clinical Impression: Sepsis, long term-acquired pneumonia, Metabolic encephalopathy, Acute renal failure Disposition: Admit Patient Referrals: MALAIKA KLINE [Primary Care Provider] - 1-2 Weeks Home Medications: Ambulatory Orders Acetaminophen [Tylenol] 650 mg GT PRN PRN 10/18/16 Ferrous Fumarate W/ B12-Vit C- [Ferocon] 1 cap GT BID 10/18/16 Levalbuterol HCl 1 dose INH Q6HR PRN 10/18/16 Loperamide HCl 2 mg GT PRN PRN 10/18/16 Pramipexole Dihydrochloride [Mirapex] 1 mg GT BID 10/18/16 Quetiapine Fumarate [Seroquel] 25 mg GT BID 10/18/16 Ranitidine HCl 150 mg GT BID 10/18/16 Tramadol HCl 50 mg GT PRN PRN 10/18/16 Decision To Admit - Decistion To Admit Decision to Admit Reason: Medical Nature Decision to Admit Date: 01/02/17 Decision to Admit Time: 12:48
[2017-01-02] MEDS ORDERED: SODIUM CHLORIDE 0.9% 250ML 250 ML ONE (12:51)
[2017-01-02] MEDS ORDERED: AZITHROMYCIN IV 500 MG VIAL IVPB ONE (12:51)
--- NOTE | 2017-01-02 13:15 | HP ---
SUPERVISING PHYSICIAN: Jeremy Tai M.D. CHIEF COMPLAINT: Vomiting, diarrhea and acute mental status change. HISTORY OF PRESENT ILLNESS: Ms. Youssef is an 81 year-old female patient that currently resides at [facility]. She was brought to the Emergency Department by EMS secondary to having at least 24 hours of nausea and vomiting with some diarrhea. Her who accompanied her to the E. R. noted that she was more lethargic than normal. There was no note of any fevers. She does have a longstanding history of a Bower catheter in place due to a history of VRE in the past with a question of colonic fistula from a previous pessary use. The reports that the patient normally has a low blood pressure. Workup in the Emergency Department included a CBC that showed a normal white count with a left shift. Hemoglobin showed to be 13.1, hematocrit 39.0. Chemistries showed normal electrolytes. BUN was elevated at 54. Lactic acid was 2.0. Liver functions showed an elevated AST of 170 and ALT of 111. Also of note was elevated CPK that was elevated at 1242. BNP was only slightly elevated at 125. Urinalysis from the existing Bower catheter on arrival from the [facility] showed a large amount of blood, positive nitrites with leukocyte esterase with microscopic showing hematuria, pyuria and bacteriuria. Radiographic studies were completed with an abdominal x-ray and per radiology interpretation there was note of the presence of a large infiltrate within the left lung in the perihilar distribution per radiology interpretation as well as fecal impaction noted within the rectosigmoid colon. The patient does have a history of Parkinson's and has recently had in the past year open reduction and internal fixation of the left hip secondary to fracture as well as has Parkinson's. She does have a G-tube in place. Given the findings on radiographic studies with an early left shift and radiographic studies indicating a left consolidation concerning for pneumonia. Antibiotics were initiated in the Emergency Room with Azithromycin and Rocephin. The patient now will be admitted for continuation of treatment for concerns for community-acquired pneumonia with possible aspiration given that she does have a G-tube as well as fecal impaction. PAST MEDICAL HISTORY: 1. Alzheimer's dementia. 2. Parkinson's disease. 3. Peripheral vascular disease. 4. 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 5. Osteoporosis. 6. Hip fracture requiring open reduction and internal fixation and continuation in a decline in her status since repair of the hip this past year. 7. Previous hospitalization for similar episode of pneumonia and confusion. PAST SURGICAL HISTORY: 1. Umbilical hernia repair. 2. Open reduction and internal fixation. 3. G-tube placement. CURRENT MEDICATIONS: Please see list of updated medications from the care facility. ALLERGIES: NO KNOWN DRUG ALLERGIES. FAMILY HISTORY: Noncontributory. SOCIAL HISTORY: She and her are and live in [place] for many years. She currently now lives at [facility]. She is without any significant history of tobacco or alcohol usage. REVIEW OF SYSTEMS: CONSTITUTIONAL: does report that she has had some weight loss but apparently has not had any fever or chills. She has had an ongoing decline and weakness. HEENT: No noted head congestion or sore throat. CARDIOVASCULAR: There is no mention of any chest pains, palpitations. RESPIRATORY: No reported cough. ABDOMEN: There is some reported nausea, vomiting and diarrhea as noted in the history of present illness, but family reports that the patient apparently had some bowel movements and a recent rectal disimpaction. GENITOURINARY: There is no reported hematuria or dysuria, but she does have an indwelling Bower catheter in place. NEUROLOGIC: Lethargic which apparently is normal for the patient for the last several months. No acute changes were mentioned. PHYSICAL EXAMINATION: VITAL SIGNS: Temperature 99.5, pulse 88, blood pressure 91/53, respirations 18 , satting 88% on room air improving to 94 with nasal cannula on 2 liters at rest. Admission weight 55.5 kg. GENERAL: The patient is very drowsy with some notable confusion. Family notes that she is not her normal self. She will respond to basic commands. HEENT: Tympanic membranes are clear bilaterally. Oropharynx is pink with mucosal membrane being dry and cracked with no lesions. NECK: Non-tender to palpation. Supple. Range of motion appeared to be normal with no jugular venous distention. CHEST: Lung sounds are significantly decreased with some rales noted to the left side more posterior and lateral. CARDIOVASCULAR: Regular rate and rhythm with no appreciable murmurs, gallops, or rubs. ABDOMEN: Soft, non-tender with a G-tube in place. EXTREMITIES: No clubbing, cyanosis or edema. NEUROLOGIC: No notable neurological deficits. Full exam difficult to obtain as the patient is lethargic. She does respond to her family members and apparently is close to her baseline status in regards to dementia. She normally does get up to a wheelchair but is not any more active than that. INTEGUMENT: There are notable areas of erythema over several bony prominences especially on the lower extremities, but no rashes or lesions are noted, or any other obvious skin breakdown. LABORATORY: White count showed to be 6.3. There was a left shift with hemoglobin 13.1, hematocrit 39.0, platelet count 167,000. Coagulation studies showed to be within normal limits. Chemistries showed normal electrolytes with potassium 4.3, BUN was elevated to 54 with creatinine 1.26. Lactic acid was 2.0 initially on admission, 4 hours repeat showed to be 1.1 after fluid management. Calcium was 8.9, magnesium was normal at 1.9. AST was elevated at 170, ALT at 111. Total bilirubin was within normal limits at 0.7. Alkaline phosphatase as well was normal. CK showed to be elevated at 1242 but troponin was less than 0.02. BNP was 125. Urinalysis on dipstick showed large amount of blood, positive nitrites, large leukocyte esterase. RBCs on microscopic revealed 20 to 30 RBCs, 10 to 20 WBCs with 2+ bacteria. MICROBIOLOGY: Blood cultures are pending. Urine culture pending. Sputum culture pending. RADIOLOGY: She had an abdominal x-ray in the Emergency Department prior to admission showing a large infiltrate within the left lung per radiology interpretation. ASSESSMENT: 1. Left lower lobe pneumonia fdc acquired with the patient having recent hospitalization this past year in September for similar symptoms. 2. Hypotension on admission secondary to sepsis secondary to #1. 3. Acute delirium with some acute changes likely secondary to #1 as well as an underlying urinary tract infection and moderate dehydration. 4. Dehydration secondary to prerenal azotemia with currently normal electrolytes. 5. Chronic poor functional status showing decline in the last several months since having a hip fracture with internal fixation completed in August. 6. Chronic urinary tract infection with a chronic indwelling Bower catheter with a history of Vancomycin resistant Enterococcus. 7. Alzheimer's dementia. 8. Parkinson's. 9. History of peripheral vascular disease. PLAN: The patient will be admitted to the Medical/Surgical floor for initiation of treatment for developing pneumonia and urinary tract infection. She was started on Azithromycin and Rocephin. This will be continued. Will start her on breathing treatments q.i.d. with DuoNeb and aggressive bronchial hygiene. In regards to dehydration, will start her on some IV fluids. She did receive approximately 1.2 liters in the Emergency Department prior to admission. Will plan to repeat a lactic acid in 6 hours post admission and treat appropriately. Will await blood culture, sputum cultures and urine culture results and target antibiotic hexamethylenamine according to those results. She should be started on DVT prophylaxis. I did talk to the family and the patient is a DNR at this time as well as there is in place on her record from the [facility] and out of hospital DNR. Will need to secure DNR status on our records here in the hospital. She will remain NPO tonight until we can get better records as to her current enteral feedings. I will resume her home medications once they have been updated and verified from the [facility]. Will anticipate length of stay to be 3 to 5 days with the patient being very fragile. At this point, she has a high mortality due to multiple co-morbidities, advanced age and early sepsis process. Until discharge, will continue to monitor and treat appropriately. #[id number] [facility]
[2017-01-02] MEDS ORDERED: ALBUTEROL SULFATE 2.5 MG/3 ML VIAL NEB PRN (13:58)
[2017-01-02] MEDS ORDERED: ACETAMINOPHEN SUPPOSITORY 650 MG PR PRN (14:04)
[2017-01-02] MEDS: IV SET AND CAP CHANGE INJ INJ SCH (15:49)
[2017-01-02] MEDS: IPRATROPIUM/ALBUTEROL 3 ML VIAL NEB SCH ×2 (15:52→21:00)
[2017-01-02] MEDS ORDERED: MAGNESIUM HYDROXIDE 30 ML UD GT ONE (16:20)
[2017-01-02] MEDS ORDERED: BISACODYL SUPPOSITORY 10 MG PR ONE (16:20)
--- NOTE | 2017-01-02 16:39 | PCM.CORE ---
Physician DVT/VTE - Nurse DVT Assessment & Total Each Risk Factor Represents 3 Points: Age over 75 years, Medical PT with Hx of RI, CHF, Severe infection/sepsis Each Risk Factor is 1 Point: Serious Lung disease (pnemonia <1month, COPD, emphysema,etc) DVT Assessment Score: 7 - 5 or more Very High Risk Treatments: Early Ambulation *, Sequential Compression Device Pharmacological: Enoxaparin 40mg SQ Daily
[2017-01-02] MEDS: KCL 20MEQ/0.45% NS 1,000 ML IVS PRN (16:55)
[2017-01-02] MEDS ORDERED: ENOXAPARIN SODIUM 30 MG/0.3 ML SYG SUBCU ONE (18:36)
[2017-01-02] MEDS ORDERED: ENOXAPARIN SODIUM 40 MG/0.4 ML SYG SUBCU ONE (18:48)
[2017-01-02] MEDS: ENOXAPARIN SODIUM 40 MG/0.4 ML SYG SUBCU SCH ×2 (18:52→18:54)
[2017-01-02] MEDS: ENOXAPARIN SODIUM 30 MG/0.3 ML SYG SUBCU SCH (19:00)
[2017-01-03] MEDS ORDERED: PANTOPRAZOLE SODIUM IV 40 MG VIAL ONE (05:24)
[2017-01-03] MEDS: SODIUM CHLORIDE 0.9% (FLUSH) 10 ML SYG IV PRN (05:47)
[2017-01-03] MEDS: PANTOPRAZOLE SODIUM IV 40 MG VIAL IV SCH (05:48)
[2017-01-03] MEDS: KCL 20MEQ/0.45% NS 1,000 ML IVS PRN (05:50)
--- NOTE | 2017-01-03 07:35 | RAD ---
Procedure: XR CHEST 1 VIEW Exam Date: 01/03/2017 Ordering Provider: Shaka Echeverria NP Clinical Indication: Pneumonia Comparison: 01/02/2017 Findings: Cardiomediastinal silhouette is stable. Focal lung consolidation: Left perihilar and basilar infiltrates are slightly improved compared to prior. Pleural effusion: Small left pleural effusion. Pneumothorax: None Acute bony or soft tissue abnormality: None Impression: 1. Left perihilar and basilar infiltrates are slightly improved compared to prior. 2. Small left pleural effusion. Electronically signed by: Rohan Agudelo MD 01/03/2017 7:33 AM CDT
[2017-01-03] MEDS: IPRATROPIUM/ALBUTEROL 3 ML VIAL NEB SCH ×4 (08:40→20:19)
[2017-01-03] MEDS ORDERED: SODIUM CHLORIDE 0.9% 250ML 250 ML ONE (11:50)
[2017-01-03] MEDS ORDERED: AZITHROMYCIN IV 500 MG VIAL IVPB ONE (11:50)
[2017-01-03] MEDS: AZITHROMYCIN IV 500 MG in SODIUM CHLORIDE 0.9% 250ML 250 ML IVPB SCH (11:59)
[2017-01-03] MEDS ORDERED: cefTRIAXone SODIUM 1 GM VIAL ONE (14:58)
[2017-01-03] MEDS ORDERED: SODIUM CHL 0.9% 50ML MIN-BAG+ 50 ML IVPB ONE (14:58)
[2017-01-03] MEDS: cefTRIAXone SODIUM 1 GM in SODIUM CHL 0.9% 50ML MIN-BAG+ 50 ML IVPB SCH (14:59)
--- NOTE | 2017-01-03 16:59 | PN ---
DATE: 01/03/17 SUPERVISING PHYSICIAN: Jeremy Tai M.D. SUBJECTIVE: The patient is lying in bed. She is asleep. She awakens easily. She answers some yes/no questions without any problem. She denies any shortness of breath or chest pain. OBJECTIVE: VITAL SIGNS: She is afebrile, pulse rate 92, blood pressure 92/54, respiratory rate 18, O2 sat 96% on 2 liters. I's and O's show a positive of 742 mL. She had multiple small liquid stools last night. RESPIRATORY: Clear to auscultation bilaterally. Somewhat diminished at the bases. CARDIAC: Regular rate and rhythm. ABDOMEN: Soft, nondistended, non-tender. There is a G -tube in place. EXTREMITIES: She is somewhat contractured but there is no cyanosis, clubbing or edema. NEUROLOGIC: She is awake, alert and oriented times three. LABORATORY: WBC 7.4, hemoglobin and hematocrit have dropped to 11.5 and 33.9, platelets 195. Chemistries are basically within normal limits with the exception of her BUN is 52 and her serum osmolality is 297.5, calcium of 8.2. Preliminary urine culture shows gram-negative rods. Preliminary blood culture showed no growth after 24 hours. Chest x-ray per radiology interpretation shows a left perihilar and basilar infiltrates that are slightly improved compared to prior and a small left pleural effusion. All other labs and films have been reviewed via the EMR. ASSESSMENT: 1. Left lower lobe pneumonia, fci acquired with the patient having recent hospitalization this past year in September for similar symptoms. 2. Hypotension on admission secondary to sepsis secondary to #1 that is now resolved. 3. Acute delirium on admission most likely secondary to sepsis and dehydration that is now improved. 4. Dehydration that is improved with IV fluids. 5. Chronic poor functional status showing decline in the last several months since the hip fracture with internal fixation that was done in August of 2016. 6. Chronic urinary tract infection with a chronic indwelling Bower catheter with a history of vancomycin resistant Enterococcus. 7. Alzheimer's dementia. 8. Parkinson's. 9. History of peripheral vascular disease. PLAN: We will continue present supportive care. I have ordered labs for in the morning including a magnesium. Shaq Martinez sent us her tube feeding schedule and we will discontinue her IV fluids after we start her tube feedings with water flushes. She had multiple bowel movements overnight so I will repeat an abdominal x-ray in the morning to make sure that has improved. We will continue to monitor her cultures and treat as appropriate. At this point her lungs are clear and she has not received any steroids. We will continue to monitor her respiratory status and if needed she can receive steroids if necessary. She does have a chronic Bower catheter that has been changed. Otherwise we will continue to monitor closely and follow as needed. Dr. Tai is the collaborating physician and available for consultation. #[id number] [facility]
[2017-01-03] MEDS: ENOXAPARIN SODIUM 30 MG/0.3 ML SYG SUBCU SCH (18:48)
[2017-01-03] MEDS ORDERED: PRAMIPEXOLE 0.25 MG TAB ONE (20:22)
[2017-01-03] MEDS: QUEtiapine FUMARATE 25 MG TAB GT SCH (20:30)
[2017-01-03] MEDS: SODIUM CHLORIDE 0.9% (FLUSH) 10 ML SYG IV SCH (20:32)
[2017-01-03] MEDS: NON-FORMULARY MEDICATION 1 EA MIS GT SCH (21:00)
[2017-01-03] MEDS: [UNRECOGNIZED DRUG - OTHER] GT SCH (21:00)
[2017-01-03] MEDS ORDERED: PRAMIPEXOLE DIHYDROCHLORIDE GT SCH (21:00)
[2017-01-04] MEDS: SODIUM CHLORIDE 0.9% (FLUSH) 10 ML SYG IV PRN (06:09)
[2017-01-04] MEDS: PANTOPRAZOLE SODIUM IV 40 MG VIAL IV SCH (06:09)
--- NOTE | 2017-01-04 07:43 | RAD ---
EXAM DESCRIPTION: Abdomen Flat Upright CLINICAL HISTORY: constipation COMPARISON: January 02, 2017 FINDINGS: AP supine and upright views of the abdomen show a nonspecific, nonobstructive bowel gas pattern with no evidence for free intraperitoneal air. PEG tube is seen in place. No air-filled dilated loops of small bowel are seen. No significant air-fluid levels are identified. No radiographic evidence of significant constipation or obstipation. No obvious organomegaly is seen. No abnormal calcifications are seen in the expected location of the renal collecting systems. Single view of the chest shows cardiac silhouette and pulmonary vasculature to be within normal limits. Lungs are normally aerated. There remains mild increased interstitial markings and increased density in the left retrocardiac region that could represent persistent infiltrate or atelectasis. There is improvement in the left perihilar interstitial changes seen on previous exam. IMPRESSION: Nonspecific abdominal series. Interval improvement of left perihilar infiltrates. There may be persistent atelectasis or infiltrate in the left lower lobe retrocardiac region. Electronically signed by: Yuriy Kurtz MD 01/04/2017 7:41 AM CDT
[2017-01-04] MEDS: IPRATROPIUM/ALBUTEROL 3 ML VIAL NEB SCH ×4 (09:10→20:11)
[2017-01-04] MEDS: QUEtiapine FUMARATE 25 MG TAB GT SCH ×2 (09:33→21:35)
[2017-01-04] MEDS: SODIUM CHLORIDE 0.9% (FLUSH) 10 ML SYG IV SCH ×2 (09:33→21:38)
[2017-01-04] MEDS: PRAMIPEXOLE 0.25 MG TAB GT SCH ×2 (09:33→21:35)
[2017-01-04] MEDS ORDERED: SODIUM CHLORIDE 0.9% 250ML 250 ML ONE (10:04)
[2017-01-04] MEDS ORDERED: AZITHROMYCIN IV 500 MG VIAL IVPB ONE (10:04)
[2017-01-04] MEDS: AZITHROMYCIN IV 500 MG in SODIUM CHLORIDE 0.9% 250ML 250 ML IVPB SCH (11:18)
[2017-01-04] MEDS: [UNRECOGNIZED DRUG - OTHER] GT SCH (11:51)
[2017-01-04] MEDS: NON-FORMULARY MEDICATION 1 EA MIS GT SCH (11:53)
[2017-01-04] MEDS: WATER GT SCH ×3 (13:30→21:30)
[2017-01-04] MEDS ORDERED: cefTRIAXone SODIUM 1 GM VIAL ONE (14:23)
[2017-01-04] MEDS ORDERED: SODIUM CHL 0.9% 50ML MIN-BAG+ 50 ML IVPB ONE (14:23)
[2017-01-04] MEDS: JEVITY 1.5 GT SCH (14:36)
[2017-01-04] MEDS: cefTRIAXone SODIUM 1 GM in SODIUM CHL 0.9% 50ML MIN-BAG+ 50 ML IVPB SCH (14:52)
--- NOTE | 2017-01-04 15:15 | PN ---
SUPERVISING PHYSICIAN: Nelson Patel MD DATE: 01/04/17 SUBJECTIVE: The patient is lying in her hospital bed. She is asleep. She awakens easily. She answers simple yes/no questions appropriately. She denies any shortness of breath, nausea, vomiting, or diarrhea. She denies any chest pain. OBJECTIVE: VITAL SIGNS: Afebrile. Heart rate 111. Blood pressure 90/55. Respiratory rate 20. O2 saturation 94%. LUNGS: Scattered rhonchi throughout, somewhat diminished at the bases. CARDIAC: Regular rate and rhythm. At times, she is tachycardic. ABDOMEN: Soft, nontender, nondistended. There is a G-tube in place. EXTREMITIES: She is contractured. No cyanosis, clubbing or edema. NEUROLOGIC: Awake and alert. LABORATORY: WBC 10.1. Hemoglobin and hematocrit are stable at 11.3 and 33.6. Platelet count 195. Sodium 144, potassium 3.9, chloride 113, BUN 57, creatinine 1.15. Glucoses run between 104 and 276. Urine culture shows Klebsiella pneumoniae. She is sensitive to ceftriaxone, which is presently on. Abdominal x-ray per radiologic interpretation shows nonspecific abdominal series with interval improvement of the left perihilar infiltrates. There may be a persistent atelectasis or infiltrate in the left lower lobe retrocardiac region. No radiographic evidence of significant constipation or obstipation. All other labs and films have been reviewed via the EMR. ASSESSMENT: 1. Left lower lobe pneumonia, chcf acquired, with the patient having recent hospitalization this past year in September for similar symptoms, presently on azithromycin and Rocephin. 2. Hypotension on admission secondary to sepsis secondary to #1, now resolved, although she still has a systolic blood pressure still in the 90s. 3. Acute delirium on admission, most likely secondary to sepsis and dehydration, now improved. 4. Dehydration, now improved with IV fluids as well as starting her gastric tube feedings. 5. Chronic poor functional status showing decline in the last several months since the hip fracture with internal fixation that was done in August 2016. 6. Chronic urinary tract infections with a chronic indwelling Bower catheter, presently Klebsiella pneumoniae. She is on Rocephin and it is sensitive to that antibiotic. 7. Alzheimer's dementia. 8. Parkinson's. 9. History of peripheral vascular disease. PLAN: We will continue present supportive care. I have ordered routine lab in the morning as well as a chest x-ray. If she continues to improve and her laboratories are normalized, she can most likely be discharged to [facility] tomorrow. She is presently on her routine scheduled tube feedings that she had at [facility]. Otherwise, we continue to monitor the patient closely and followup as needed. Dr. Patel is the collaborating physician and available for consultation. #[id number] #[id number] [facility]
[2017-01-04] MEDS: ENOXAPARIN SODIUM 40 MG/0.4 ML SYG SUBCU SCH (21:38)
[2017-01-05] MEDS: SODIUM CHLORIDE 0.9% (FLUSH) 10 ML SYG IV PRN (06:10)
[2017-01-05] MEDS: PANTOPRAZOLE SODIUM IV 40 MG VIAL IV SCH (06:10)
--- NOTE | 2017-01-05 07:30 | RAD ---
EXAM DESCRIPTION: Chest,1 View CLINICAL HISTORY: pna COMPARISON: January 03, 2017 FINDINGS: The cardiomediastinal silhouette is unremarkable. There is new ill-defined alveolar opacity in the mid and lower right lung suspicious for pneumonia. Questionable trace amount of right pleural fluid. There is a probable small left-sided effusion with overlying atelectasis and/or consolidation in the left lung base, stable. Postoperative changes are noted in the chest wall bilaterally. There is no pneumothorax or acute fracture. IMPRESSION: New airspace consolidation in the mid and lower right lung consistent with provided history of pneumonia with a possible tiny right-sided effusion. Edema should also be considered. Abnormal appearance of the left lung base also represent either pneumonia or edema, stable. Electronically signed by: Andre Treivno MD 01/05/2017 7:28 AM CDT Workstation: [id number]
[2017-01-05] MEDS ORDERED: SODIUM CHLORIDE 0.9% 250ML 250 ML ONE (07:57)
[2017-01-05] MEDS ORDERED: AZITHROMYCIN IV 500 MG VIAL IVPB ONE (07:58)
--- NOTE | 2017-01-05 08:00 | RAD ---
EXAM DESCRIPTION: Chest,1 View CLINICAL HISTORY: Pneumonia. Dyspnea FINDINGS/ IMPRESSION: Comparison 01/04/2017 Mild cardiac enlargement. Tortuous atherosclerotic aorta. Vascular congestion. Minimal increased interstitium compatible with minimal edema. Retrocardiac left lower lobe opacification, atelectasis and/or infiltrate with interval development of a small pleural effusion Overlying legal stenographer leads. No pneumothorax. Osteopenia without acute bony abnormality Electronically signed by: Nelson Robb MD 01/05/2017 7:58 AM CDT
[2017-01-05] MEDS: IPRATROPIUM/ALBUTEROL 3 ML VIAL NEB SCH ×4 (08:42→21:00)
[2017-01-05] MEDS: BIFIDOBACTERIUM INFANTIS 4 MG CAP GT SCH (09:00)
[2017-01-05] MEDS: WATER GT SCH ×4 (09:01→21:38)
[2017-01-05] MEDS: PRAMIPEXOLE 0.25 MG TAB GT SCH ×2 (10:00→21:37)
[2017-01-05] MEDS: QUEtiapine FUMARATE 25 MG TAB GT SCH ×2 (10:00→21:37)
[2017-01-05] MEDS: JEVITY 1.5 GT SCH ×2 (10:01→15:04)
[2017-01-05] MEDS: SODIUM CHLORIDE 0.9% (FLUSH) 10 ML SYG IV SCH ×2 (10:01→21:37)
[2017-01-05] MEDS: AZITHROMYCIN IV 500 MG in SODIUM CHLORIDE 0.9% 250ML 250 ML IVPB SCH (10:06)
[2017-01-05] MEDS: FUROSEMIDE INJ 20 MG/2 ML VIAL IV ONE ×2 (13:40→15:53)
--- NOTE | 2017-01-05 13:51 | PN ---
SUPERVISING PHYSICIAN: Nelson Patel MD DATE: 01/05/17 SUBJECTIVE: The patient is lying in bed. She denies any chest pain or shortness of breath. She is somewhat more lethargic than yesterday. She at times mumbles incoherently although she does answer yes and no distinctly. OBJECTIVE: VITAL SIGNS: Afebrile. Heart rate 105. Blood pressure 91/52. Respiratory rate 18. O2 saturation 90% on 2 liters nasal cannula. LUNGS: A few scattered rhonchi throughout and diminished at the bases. CARDIAC: Regular rate and rhythm. ABDOMEN: Soft, nontender, nondistended. Bowel sounds are positive. Her G- tube is in place for tube feeding, infusing without difficulty. EXTREMITIES: She is contractured. There is no cyanosis or edema. NEUROLOGIC: Awake, somewhat lethargic. LABORATORY: White count has increased to 13, hemoglobin and hematocrit are stable at 11.5 and 35.2 with platelet count 234. Electrolytes are within normal limits with the exception of her chloride slightly elevated at 112, BUN 66, creatinine 1.3. Glucose has run between 104 and 276 with calcium 7.4. AST 56, ALT 84. Chest x-ray per radiologic interpretation shows mild cardiac enlargement with tortuous atherosclerotic aorta and vascular congestion, minimal increased interstitium, compatible with minimal edema. Retrocardiac left lower lobe opacification, atelectasis, and/or infiltrate with interval development of a small pleural effusion. All other labs and films have been reviewed via the EMR. ASSESSMENT: 1. Left lower lobe pneumonia, prison acquired, with the patient having recent hospitalization this past year in September for similar symptoms, presently on azithromycin and Rocephin. 2. Hypotension on admission secondary to sepsis secondary to #1, now resolved, although she continues to have a systolic blood pressure in the 90s, which may be her baseline. 3. Acute delirium on admission, improved. 4. Dehydration on admission, now improved. 5. Chronic poor functional status showing decline in the last several months since the hip fracture with internal fixation that was done in August 2016. 6. Chronic urinary tract infections with a chronic indwelling Bower catheter, presently Klebsiella pneumoniae. She is on Rocephin and it is sensitive to that antibiotic. 7. Alzheimer's dementia. 8. Parkinson's. 9. History of peripheral vascular disease. PLAN: We will continue present supportive care. I have ordered routine lab for in the morning. I am not sure why her white count has elevated. I will recheck it tomorrow and if it continues to be elevated, I will talk to Dr. Field , infectious disease physician, for suggestions on change in antibiotic therapy. I have also given her a small amount of Lasix and that may help her pulmonary edema. She may be at her baseline as far as her physical status and hopefully she will be improved enough that she can be discharged back to [facility] in the next day or two. We will continue to monitor the patient closely and followup as needed. Dr. Patel is the collaborating physician and available for consultation. #[id number] [facility]
[2017-01-05] MEDS ORDERED: FUROSEMIDE INJ 20 MG/2 ML VIAL ONE (14:08)
[2017-01-05] MEDS: IV SET AND CAP CHANGE INJ INJ SCH (14:09)
[2017-01-05] MEDS ORDERED: cefTRIAXone SODIUM 1 GM VIAL ONE (14:11)
[2017-01-05] MEDS ORDERED: SODIUM CHL 0.9% 50ML MIN-BAG+ 50 ML IVPB ONE (14:11)
[2017-01-05] MEDS: cefTRIAXone SODIUM 1 GM in SODIUM CHL 0.9% 50ML MIN-BAG+ 50 ML IVPB SCH (15:03)
[2017-01-05] MEDS: traMADol HCL 50 MG TAB GT PRN (15:43)
[2017-01-05] MEDS: ENOXAPARIN SODIUM 40 MG/0.4 ML SYG SUBCU SCH (21:37)
--- NOTE | 2017-01-06 06:10 | RAD ---
EXAM: Single view chest. INDICATION: Pneumonia. COMPARISON: Chest x-ray: 01/05/2017. FINDINGS: There is peribronchial thickening with a left basilar airspace opacity. Bilateral pleural effusions are present. The heart size is stable. There is no pneumothorax. IMPRESSION: Peribronchial thickening with a left basilar airspace opacity Electronically signed by: Tristin Durham MD 01/06/2017 6:08 AM CDT Workstation: [id number]
[2017-01-06] MEDS: SODIUM CHLORIDE 0.9% (FLUSH) 10 ML SYG IV PRN (06:45)
[2017-01-06] MEDS: PANTOPRAZOLE SODIUM IV 40 MG VIAL IV SCH (06:46)
[2017-01-06] MEDS: IPRATROPIUM/ALBUTEROL 3 ML VIAL NEB SCH ×3 (09:15→17:46)
[2017-01-06] MEDS: PRAMIPEXOLE 0.25 MG TAB GT SCH (10:00)
[2017-01-06] MEDS: QUEtiapine FUMARATE 25 MG TAB GT SCH (10:00)
[2017-01-06] MEDS: BIFIDOBACTERIUM INFANTIS 4 MG CAP GT SCH (10:00)
[2017-01-06] MEDS: WATER GT SCH ×3 (10:30→17:15)
[2017-01-06] MEDS: JEVITY 1.5 GT SCH ×2 (10:31→15:08)
[2017-01-06] MEDS: SODIUM CHLORIDE 0.9% (FLUSH) 10 ML SYG IV SCH (10:31)
[2017-01-06] MEDS ORDERED: SODIUM CHLORIDE 0.9% 250ML 250 ML ONE (12:19)
[2017-01-06] MEDS ORDERED: AZITHROMYCIN IV 500 MG VIAL IVPB ONE (12:19)
[2017-01-06] MEDS: AZITHROMYCIN IV 500 MG in SODIUM CHLORIDE 0.9% 250ML 250 ML IVPB SCH (12:41)
[2017-01-06 13:50] VITALS: O2SAT 97
[2017-01-06] MEDS ORDERED: SODIUM CHL 0.9% 50ML MIN-BAG+ 50 ML IVPB ONE (14:34)
[2017-01-06] MEDS ORDERED: cefTRIAXone SODIUM 1 GM VIAL ONE (14:35)
[2017-01-06] MEDS: cefTRIAXone SODIUM 1 GM in SODIUM CHL 0.9% 50ML MIN-BAG+ 50 ML IVPB SCH (15:08)
[2017-01-06 18:42] VITALS: BP 66/48; TEMP 97.2
[2017-01-06] MEDS: traMADol HCL 50 MG TAB GT PRN (19:59)
--- NOTE | 2017-01-07 08:02 | PN ---
SUPERVISING PHYSICIAN: Nelson Patel MD DATE: 01/06/17 SUBJECTIVE: The patient is lying in bed. She is mostly unresponsive at this time although she grunts and mumbles at times. Her niece is at the bedside. We discussed at length hospice care. OBJECTIVE: VITAL SIGNS: Systolic blood pressure has been running in the 60s and as high as 82 over the last 24 hours. Heart rate is around 101. She has been afebrile. Respiratory rate has ranged from 16 to 18. O2 satisfactory 94% on 1.5 liters. She is a DNR. LUNGS: Diminished throughout. Agonal respirations at times. CARDIAC: Regular rate and rhythm. ABDOMEN: Soft, nondistended. G-tube in place. NEUROLOGIC: She is mostly obtunded. LABORATORY: WBC elevated to 16.3 with stable hemoglobin and hematocrit of 13.2 and 40.4. Chloride 114. BUN and creatinine have worsened to 99 and 2.48. Serum osmolality 328.2. Chest x-ray shows peribronchial thickening with a left basilar airspace opacity. All other labs and films have been reviewed via the EMR. ASSESSMENT: 1. Left lower lobe pneumonia, shelter acquired. The patient is presently on azithromycin and Rocephin. 2. Multisystem failure secondary to sepsis. 3. Acute delirium. 4. Chronic poor functional status, showing decline in the last several months. 5. Chronic urinary tract infection with a chronic indwelling Bower catheter, presently Klebsiella pneumoniae. 6. Alzheimer's dementia. 7. Parkinson's. 8. History of peripheral vascular disease. PLAN: At this point, I have spoken with a niece extensively about going to hospice care. She has a very poor prognosis given her multisystem failure, plus her declining health over the last several months. We will plan to meet in the morning with [facility] with her family and hopefully we can get her transitioned to inpatient hospice care. Otherwise, we will continue to monitor and follow as needed. Dr. Patel is the collaborating physician and available for consultation. #[id number] [facility]
--- NOTE | 2017-01-07 21:09 | DS ---
SUPERVISING PHYSICIAN: Nelson Patel M.D. DISCHARGE DIAGNOSIS: 1. Left lower lobe pneumonia, longterm acquired. The patient is presently on azithromycin and Rocephin. 2. Multisystem failure secondary to sepsis. 3. Acute delirium. 4. Chronic poor functional status, showing decline in the last several months. 5. Chronic urinary tract infection with a chronic indwelling Bower catheter, presently Klebsiella pneumoniae. 6. Alzheimer's dementia. 7. Parkinson's. 8. History of peripheral vascular disease. HISTORY OF PRESENT ILLNESS: Ms. Youssef is an 81 year-old female patient that currently resides at [facility]. She was brought to the Emergency Department by EMS secondary to having at least 24 hours of nausea and vomiting with some diarrhea. Her who accompanied her to the E. R. noted that she was more lethargic than normal. There was no note of any fevers. She does have a longstanding history of a Bower catheter in place due to a history of VRE in the past with a question of colonic fistula from a previous pessary use. The reports that the patient normally has a low blood pressure. Workup in the Emergency Department included a CBC that showed a normal white count with a left shift. Hemoglobin showed to be 13.1, hematocrit 39.0. Chemistries showed normal electrolytes. BUN was elevated at 54. Lactic acid was 2.0. Liver functions showed an elevated AST of 170 and ALT of 111. Also of note was elevated CPK that was elevated at 1242. BNP was only slightly elevated at 125. Urinalysis from the existing Bower catheter on arrival from the snf showed a large amount of blood, positive nitrites with leukocyte esterase with microscopic showing hematuria, pyuria and bacteriuria. Radiographic studies were completed with an abdominal x-ray and per radiology interpretation there was note of the presence of a large infiltrate within the left lung in the perihilar distribution per radiology interpretation as well as fecal impaction noted within the rectosigmoid colon. The patient does have a history of Parkinson's and has recently had in the past year open reduction and internal fixation of the left hip secondary to fracture as well as has Parkinson's. She does have a G-tube in place. Given the findings on radiographic studies with an early left shift and radiographic studies indicating a left consolidation concerning for pneumonia. Antibiotics were initiated in the Emergency Room with Azithromycin and Rocephin. The patient now will be admitted for continuation of treatment for concerns for community-acquired pneumonia with possible aspiration given that she does have a G-tube as well as fecal impaction. HOSPITAL COURSE: The patient did not improve during her stay, although her laboratory studies were improved with hydration. After several days, her white count went up to 16.3. Today, on date of discharge, her BUN elevated to 99 as well as her creatinine of 2.48. The patient numerous times asked that she not be returned to [facility]. Her mentation slowly diminished and after a lengthy discussion with the family, they decided to place her in hospice care. DISCHARGE PLAN: The patient will be discharged to [facility]. Family has been given extensive instructions about her care. They have all agreed to that. There are no discharge medications. Dr. Patel is the collaborating physician available for consultation. [facility][id number] [facility]
== END 2017-01-06 20:20 | disposition hospice, inpatient (51) | DRG 871 ==
LOC: ER 10:07 → MS 13:14
PROVIDERS: ADMIT Nurse Practitioner Family; ATTEND Nurse Practitioner Acute Care
DX: A41.9 Sepsis, unspecified organism (principal); J18.9 Pneumonia, unspecified organism; G93.41 Metabolic encephalopathy; F05 Delirium due to known physiological condition; N39.0 Urinary tract infection, site not specified; N17.9 Acute kidney failure, unspecified; G30.9 Alzheimer's disease, unspecified; F02.80 Dementia in other diseases classified elsewhere, unspecified severity, without behavioral disturbance, psychotic disturbance, mood disturbance, and anxiety; G20 Parkinson's disease; I73.9 Peripheral vascular disease, unspecified; N81.4 Uterovaginal prolapse, unspecified; M81.0 Age-related osteoporosis without current pathological fracture; E86.0 Dehydration; B96.1 Klebsiella pneumoniae [K. pneumoniae] as the cause of diseases classified elsewhere; K59.00 Constipation, unspecified; Y95 Nosocomial condition; Z66 Do not resuscitate; Z93.1 Gastrostomy status; Z79.899 Other long term (current) drug therapy

== ENCOUNTER 2017-01-06 20:25 | Inpatient (IN) | payer MEDICARE, OTHER ==
[~2017-01-06 20:25] MED LIST: MORPHINE SULFATE INJ 10 MG/ML VIAL IV PRN; MORPHINE SULFATE INJ 10 MG/ML VIAL IV SCH; ONDANSETRON INJ 4 MG/2 ML VIAL IV PRN
[2017-01-06] MEDS ORDERED: SODIUM CHLORIDE 0.9% (FLUSH) 10 ML SYG IV PRN (22:41)
--- NOTE | 2017-01-07 16:43 | SSS ---
SUPERVISING PHYSICIAN: Nelson Patel M.D. DISCHARGE DIAGNOSES: 1. due to multisystem organ failure. HISTORY OF PRESENT ILLNESS: This is an 81 year-old female patient who was initially admitted to the hospital on 01/02/17 from [facility] for a urinary tract infection and pneumonia. Her condition progressively worsened over the next several days and her family decided that she should be placed in [facility]. The patient was admitted 2024 and the [facility] nurse was here. She initiated all of the routine hospice orders. The patient at 2202. Dr. Patel is the collaborating physician and available for consultation. #[id number] [facility]
== END 2017-01-06 22:03 | disposition expired | DRG 194 ==
LOC: MS 20:25
PROVIDERS: ADMIT Family Medicine; ATTEND Nurse Practitioner Acute Care
DX: J18.9 Pneumonia, unspecified organism (principal); N39.0 Urinary tract infection, site not specified; Z66 Do not resuscitate